=== PATIENT | male | born 1935 | race Caucasian/White ===

== ENCOUNTER 2017-07-11 17:56 | Emergency (ER) | payer MEDICARE, OTHER ==
[2017-07-11 18:04] VITALS: BP 150/84
[2017-07-11] MEDS ORDERED: hydrOXYzine PAMOATE 25 MG CAPSULE PO STA (18:27)
[2017-07-11] MEDS ORDERED: predniSONE 20 MG TABLET PO STA (18:27)
--- NOTE | 2017-07-11 18:29 | ED Physician Documentation ---
PD HPI SKIN - Stated complaint Stated Complaint: BODY RASH - Chief complaint Chief Complaint: Wound - History obtained from History obtained from: Patient - History of Present Illness Timing - onset: Other (He has had a mildly itchy rash on the upper chest for about a month, he tried cortisone cream and that made it worse but it got acutely worse yesterday after using vitamin E ointment on it.) Review of Systems Constitutional: denies: Fever, Chills Cardiac: denies: Chest pain / pressure, Palpitations Respiratory: denies: Dyspnea, Cough GI: denies: Abdominal Pain, Vomiting PD PAST MEDICAL HISTORY - Past Medical History Past Medical History: Yes Cardiovascular: Hypertension Endocrine/Autoimmune: Type 2 diabetes - Present Medications Home Medications: Ambulatory Orders Medication Instructions Recorded Confirmed Aspirin Chewable [[facility] 81 mg PO DAILY 12/01/15 12/01/15 Aspirin] metFORMIN [Glucophage] 500 mg PO ONCE 12/01/15 12/01/15 hydrOXYzine PAMOATE [Vistaril] 25 mg PO Q6H PRN #15 capsule 07/11/17 predniSONE [Deltasone] 20 mg PO DAILY 5 Days tablet 07/11/17 - Allergies Allergies/Adverse Reactions: Allergies Allergy/AdvReac Type Severity Reaction Status Date / Time amoxicillin Allergy Anaphylaxis Verified 12/01/15 12:34 - Social History Does the pt smoke?: No Smoking Status: Never smoker PD ED PE NORMAL - Vitals Vital signs reviewed: Yes - General General: Alert and oriented X 3, No acute distress - Derm Derm: Other (On the central and upper chest he has a pretty clear contact dermatitis, the underlying cause of the rash is not identifiable.) - Neuro Neuro: Alert and oriented X 3, Normal speech Results - Vitals Vitals: Vital Signs - 24 hr 07/11/17 07/11/17 17:59 18:02 Temperature 36.9 C Heart Rate 74 Respiratory 18 Rate Blood Pressure 150/84 H O2 Saturation 97 Oxygen O2 Source Room air PD MEDICAL DECISION MAKING - ED course ED course: Very low dose of prednisone was chosen because he has borderline diabetes and in 1979 or so he had some sort of illness necessitating high-dose steroid therapy which made him very hyper. Departure - Departure Disposition: 01 Home, Self Care Clinical Impression: Contact dermatitis Qualifiers: Contact dermatitis type: irritant Contact dermatitis trigger: drugs in contact with skin Qualified Code(s): L24.4 - Irritant contact dermatitis due to drugs in contact with skin Condition: Good Record reviewed to determine appropriate education?: Yes Instructions: ED Dermatitis Contact Follow-Up: [facility] [Provider Group] Prescriptions: hydrOXYzine PAMOATE [Vistaril] 25 mg PO Q6H PRN #15 capsule PRN Reason: Itching predniSONE [Deltasone] 20 mg PO DAILY 5 Days tablet Comments: Your blood pressure was elevated today on check into the emergency department. This does not mean that you have hypertension, it is a common phenomenon to come to the emergency department and have elevated blood pressure. I recommend that you see your primary care physician within the week to have it rechecked when you are feeling better.
== END 2017-07-11 18:34 | disposition home or self-care (01) ==
LOC: ED 17:56
DX: L24.4 Irritant contact dermatitis due to drugs in contact with skin (principal); I10 Essential (primary) hypertension; E11.9 Type 2 diabetes mellitus without complications; Z79.84 Long term (current) use of oral hypoglycemic drugs; Z79.82 Long term (current) use of aspirin
CPT/HCPCS: 99283; A9270; J7512

== ENCOUNTER 2018-09-06 15:20 | Outpatient (CLI) | payer MEDICARE, OTHER | END 2018-09-06 15:21 | disposition critical access hospital (66) | LOC: EMS 15:20 | PROVIDERS: ATTEND Surgery | DX: R42 Dizziness and giddiness (principal) | CPT/HCPCS: A0425; A0429 ==

== ENCOUNTER 2018-09-06 15:39 | Emergency (ER) | payer MEDICARE, OTHER ==
[2018-09-06] MEDS ORDERED: SODIUM CHLORIDE 0.9% 1,000 ML IV ONE (15:48)
--- NOTE | 2018-09-06 15:51 | ED Physician Documentation ---
PD HPI FOCAL NEURO - Stated complaint Stated Complaint: DIZZY - Chief complaint Chief Complaint: Neuro - History obtained from History obtained from: Patient, EMS - History of Present Illness Timing - onset: Today (This is an 82-year-old gentleman who is generally healthy. He takes metformin for diabetes, no insulin. No other medical problems. He was sitting in his chair watching a horse race and stood up and felt lightheaded. He sat down and felt better but every time he stood up since then he is felt lightheaded. Is been going on for about an hour and a half. He denies any nausea, sweats, shortness of breath, fevers, chills, chest pain, abdominal pain, or bowel complaints. He admits he did not drink any water today, he did have a ham and cheese on rye with lettuce prior to this starting.) Review of Systems Ten Systems: 10 systems reviewed and negative Constitutional: denies: Fever, Chills, Myalgias, Fatigue Nose: denies: Rhinorrhea / runny nose, Congestion Throat: denies: Sore throat Cardiac: denies: Chest pain / pressure, Palpitations Respiratory: denies: Dyspnea, Cough GI: denies: Abdominal Pain PD PAST MEDICAL HISTORY - Past Medical History Cardiovascular: Hypertension Endocrine/Autoimmune: Type 2 diabetes - Present Medications Home Medications: Ambulatory Orders Medication Instructions Recorded Confirmed Aspirin Chewable [[facility] 81 mg PO DAILY 12/01/15 12/01/15 Aspirin] metFORMIN [Glucophage] 500 mg PO ONCE 12/01/15 12/01/15 hydrOXYzine PAMOATE [Vistaril] 25 mg PO Q6H PRN #15 capsule 07/11/17 predniSONE [Deltasone] 20 mg PO DAILY 5 Days tablet 07/11/17 - Allergies Allergies/Adverse Reactions: Allergies Allergy/AdvReac Type Severity Reaction Status Date / Time amoxicillin Allergy Anaphylaxis Verified 12/01/15 12:34 - Social History Does the pt smoke?: No Smoking Status: Never smoker - Family History Family history: reports: Non contributory PD ED PE NORMAL - Vitals Vital signs reviewed: Yes - General General: Alert and oriented X 3, No acute distress - HEENT HEENT: PERRL, EOMI - Neck Neck: Supple, no meningeal sign, No bony TTP - Cardiac Cardiac: RRR, No murmur - Respiratory Respiratory: No respiratory distress, Clear bilaterally - Abdomen Abdomen: Soft, Non tender - Back Back: No CVA TTP, No spinal TTP - Derm Derm: Normal color, Warm and dry - Extremities Extremities: No edema, No calf tenderness / cord - Neuro Neuro: Alert and oriented X 3, 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, Normal speech Eye Opening: Spontaneous Motor: Obeys Commands Verbal: Oriented GCS Score: 15 NIHSS - Time Time: 15:45 - Level of Consciousness Level of consciousness: (0) Alert, Keenly responsive LOC Questions: (0) Answers both Q's correct LOC Commands: (0) Performs both correctly - Gaze Best Gaze: (0) Normal - Visual Visual: (0) No loss - Facial Palsy Facial Palsy: (0) Normal, symmetrical movement - Motor Arms (both separate) Motor Arm (right): (0) No drift Motor Arm (left): (0) No drift - Motor Legs (both separate) Motor Leg (right): (0) No drift Motor Leg (left): (0) No drift - Limb Ataxia Limb Ataxia: (0) Absent - Sensory Sensory: (0) Normal - Best Language Best Language: (0) No aphasia - Dysarthria Dysarthria: (0) Normal - Extinction and Inattention (formally neg Extinction and inattention: (0) No abnormality - Total Score/Results Total Score/Result: 0 Results - Vitals Vitals: Vital Signs - 24 hr 09/06/18 09/06/18 15:41 16:06 Temperature 36.3 C L Heart Rate 91 Heart Rate [ 66 Sitting] Heart Rate [ 77 Standing] Heart Rate [ 71 Supine] Respiratory 18 Rate Blood Pressure 179/127 H Blood Pressure 166/78 H [Sitting] Blood Pressure 162/87 H [Standing] Blood Pressure 172/72 H [Supine] O2 Saturation 97 Oxygen O2 Source Room air - EKG (time done) 1553 Rate: Rate (enter#) (66) Rhythm: NSR [place]: Normal Intervals: Prolonged IA QRS: Normal Ischemia: Normal ST segments Computer interpretation: Agree with computer - Labs Labs: Laboratory Tests 09/06/18 09/06/18 09/06/18 16:03 16:03 16:03 WBC 7.0 RBC 5.21 Hgb 15.9 Hct 47.8 MCV 91.8 MCH 30.6 MCHC 33.3 RDW 13.7 Plt Count 259 MPV 7.1 L Neut # (Auto) 3.8 Lymph # (Auto) 2.2 [place] # (Auto) 0.7 Eos # (Auto) 0.2 Baso # (Auto) 0.1 Absolute Nucleated RBC 0.00 Nucleated RBC % 0.0 Sodium 138 Potassium 4.1 Chloride 101 Carbon Dioxide 25 Anion Gap 12.0 BUN 19 Creatinine 0.9 Estimated GFR (MDRD) 80 L Glucose 131 H Calcium 9.5 Total Bilirubin 0.8 AST 23 ALT 20 Alkaline Phosphatase 73 Troponin I < 0.04 Total Protein 7.3 Albumin 4.2 Globulin 3.1 Albumin/Globulin Ratio 1.4 Lipase 30 Urine Color Urine Clarity Urine pH Ur Specific [place] Urine Protein Urine Glucose (UA) Urine Ketones Urine Occult Blood Urine Nitrite Urine Bilirubin Urine Urobilinogen Ur Leukocyte Esterase Urine RBC Urine WBC Ur Squamous Epith Cells Urine Bacteria Urine Mucus Ur Microscopic Review Urine Culture Comments 09/06/18 16:20 WBC RBC Hgb Hct MCV MCH MCHC RDW Plt Count MPV Neut # (Auto) Lymph # (Auto) [place] # (Auto) Eos # (Auto) Baso # (Auto) Absolute Nucleated RBC Nucleated RBC % Sodium Potassium Chloride Carbon Dioxide Anion Gap BUN Creatinine Estimated GFR (MDRD) Glucose Calcium Total Bilirubin AST ALT Alkaline Phosphatase Troponin I Total Protein Albumin Globulin Albumin/Globulin Ratio Lipase Urine Color YELLOW Urine Clarity CLEAR Urine pH 5.5 Ur Specific [place] >=1.030 H Urine Protein 100 H Urine Glucose (UA) NEGATIVE Urine Ketones TRACE Urine Occult Blood NEGATIVE Urine Nitrite NEGATIVE Urine Bilirubin NEGATIVE Urine Urobilinogen 0.2 (NORMAL) Ur Leukocyte Esterase NEGATIVE Urine RBC 0-5 Urine WBC 4-5 Ur Squamous Epith Cells RARE Squamous Urine Bacteria None Seen Urine Mucus Few Strands Ur Microscopic Review INDICATED Urine Culture Comments NOT INDICATED PD MEDICAL DECISION MAKING - ED course ED course: 82-year-old gentleman presents with nonspecific orthostatic lightheadedness today. He admits he only had one sip of coffee this morning and that all the liquids he is had. His work-up was negative with the exception of high urine specific gravity and he felt better after the administration of IV fluids. Departure - Departure Disposition: 01 Home, Self Care Clinical Impression: Orthostasis, Dehydration Condition: Good Record reviewed to determine appropriate education?: Yes Instructions: ED Dehydration Comments: Call your doctor to arrange a follow-up appointment, make the next available appointment. In the interim, return anytime if worse or if new symptoms develop.
[2018-09-06 16:22] LABS: BASOPHILS # (AUTO) 0.1 10^3/uL (0.0-0.1); BASOPHILS % (AUTO) 0.8 %; EOSINOPHILS # (AUTO) 0.2 10^3/uL (0.0-0.7); EOSINOPHILS % (AUTO) 2.8 %; HGB - HEMOGLOBIN 15.9 g/dL (14.0-18.0); LYMPHOCYTES # (AUTO) 2.2 10^3/uL (1.5-3.5); LYMPHOCYTES % (AUTO) 31.6 %; MEAN CORPUSCULAR HEMOGLOBIN 30.6 pg (27.0-31.0); MEAN CORPUSCULAR HGB CONC 33.3 g/dL (32.0-36.0); MEAN CORPUSCULAR VOLUME 91.8 fL (80.0-94.0); MEAN PLATELET VOLUME 7.1 fL (7.4-11.4); MONOCYTES # (AUTO) 0.7 10^3/uL (0.0-1.0); MONOCYTES % (AUTO) 10.7 %; NEUTROPHILS # (AUTO) 3.8 10^3/uL (1.5-6.6); NEUTROPHILS % (AUTO) 54.1 %; PLT - PLATELET COUNT 259 10^3/uL (130-450); RED BLOOD COUNT 5.21 10^6/uL (4.70-6.10); RED CELL DISTRIBUTION WIDTH 13.7 % (12.0-15.0)
[2018-09-06 16:38] LABS: BILIRUBIN,URINE NEGATIVE (NEGATIVE); GLUCOSE, URINE (UA) NEGATIVE (NEGATIVE); KETONES,URINE (UA) TRACE mg/dL (NEGATIVE); LEUKOCYTE ESTERASE, URINE NEGATIVE (NEGATIVE); NITRITE,URINE NEGATIVE (NEGATIVE); OCCULT BLOOD,URINE NEGATIVE (NEGATIVE); PH,URINE 5.5 PH (5.0-7.5); PROTEIN,URINE 100 mg/dL (NEGATIVE); UROBILINOGEN,URINE 0.2 (NORMAL) E.U./dL (NORMAL)
[2018-09-06 16:39] LABS: ALBUMIN 4.2 g/dL (3.2-5.5); ALBUMIN/GLOBULIN RATIO 1.4 (1.0-2.2); BILIRUBIN,TOTAL 0.8 mg/dL (0.2-1.0); CALCIUM 9.5 mg/dL (8.5-10.3); CREATININE 0.9 mg/dL (0.6-1.2); TOTAL PROTEIN 7.3 g/dL (6.7-8.2)
[2018-09-06 16:54] LABS: CLARITY,URINE CLEAR (CLEAR)
[2018-09-06 16:59] LABS: BACTERIA,URINE None Seen /HPF (None Seen); MUCUS,URINE Few Strands; RBC,URINE 0-5 /HPF (0-5); SQUAMOUS EPITHELIAL CELL,UR RARE Squamous (<= Few)
[2018-09-06 17:51] VITALS: BP 151/104
== END 2018-09-06 17:52 | disposition home or self-care (01) ==
LOC: EDUNIT# → ED 15:39
DX: E86.0 Dehydration (principal); I95.1 Orthostatic hypotension; I44.0 Atrioventricular block, first degree; E11.9 Type 2 diabetes mellitus without complications; Z79.84 Long term (current) use of oral hypoglycemic drugs; I10 Essential (primary) hypertension; Z79.82 Long term (current) use of aspirin
CPT/HCPCS: 36415; 80053; 81001; 81003; 83690; 84484; 85025; 87086; 93005; 96360; 99284

== ENCOUNTER 2022-02-28 19:14 | Outpatient (CLI) | payer MEDICARE, OTHER | END 2022-02-28 23:59 | disposition short-term general hospital (02) | LOC: EMS 19:14 | DX: R55 Syncope and collapse (principal); R11.2 Nausea with vomiting, unspecified; R53.1 Weakness | CPT/HCPCS: A0425; A0427 ==

== ENCOUNTER → 2022-11-10 | Outpatient (CLI) | payer MEDICARE, OTHER | END | disposition left against medical advice (07) | LOC: EMS 06:52 | DX: R42 Dizziness and giddiness (principal) ==

== ENCOUNTER 2023-05-12 09:49 | Emergency (ER) | payer MEDICARE, OTHER ==
[2023-05-12 10:14] VITALS: BP 122/55; O2SAT 98
--- NOTE | 2023-05-12 10:19 | ED Physician Documentation ---
PD HPI SKIN - Stated complaint Stated Complaint: RASH ON CHEST - Chief complaint Chief Complaint: Allergic Rx - History obtained from History obtained from: Patient - History of Present Illness Timing - onset: How many weeks ago (has had mild red rash that is itchy on chest sternal area that has expanded with now blisters. Has increased the past few days despite OTC hydrocortisone cream. Also now in antecubital areas. No feeling of oral lesions/swelling.) Timing - details: Gradual onset, Still present Location: Chest, RUE, LUE Quality / character: Itchy, Discolored, Vesicular Improved by: No: Steroid cream Associated symptoms: Myalgias. No: Fever, Joint pain, Headache, N/V/D Contributing factors: Exposed to soap / lotion (was using some new soap/lotion bodywide recently up until yesterday.). No: Exposed to food, Recent illness Similar symptoms before: No diagnosis (has had similar in the past Rx with oral steroids for several days or so and typically improves with that.) Review of Systems Constitutional: denies: Fever, Chills Nose: denies: Rhinorrhea / runny nose, Congestion Throat: denies: Sore throat Respiratory: denies: Cough GI: denies: Nausea, Vomiting, Diarrhea PD PAST MEDICAL HISTORY - Past Medical History Past Medical History: Yes Cardiovascular: Hypertension Respiratory: None Neuro: None Endocrine/Autoimmune: Type 2 diabetes GI: None : None HEENT: None Psych: None Musculoskeletal: Osteoarthritis Derm: None - Past Surgical History General: Cholecystectomy - Present Medications Home Medications: Ambulatory Orders Medication Instructions Recorded Confirmed Aspirin Chewable [[facility] 81 mg PO DAILY 12/01/15 05/12/23 Aspirin] metFORMIN [Glucophage] 500 mg PO BID 12/01/15 05/12/23 Lisinopril [Zestril] 2.5 mg PO DAILY 10/19/22 05/12/23 Betamethasone Valerate 1 applic TP BID #30 gm 05/12/23 Cetirizine [ZyrTEC] 10 mg PO DAILY #15 tablet 05/12/23 dexAMETHasone [Decadron] 4 mg PO DAILY #5 tablet 05/12/23 - Allergies Allergies/Adverse Reactions: Allergies Allergy/AdvReac Type Severity Reaction Status Date / Time amoxicillin Allergy Anaphylaxis Verified 05/12/23 10:04 - Social History Does the pt smoke?: No Smoking Status: Former smoker Does the pt drink ETOH?: No Does the pt have substance abuse?: No - Immunizations Immunizations are current?: Yes PD ED PE NORMAL - Vitals Vital signs reviewed: Yes - General General: Alert and oriented X 3, No acute distress, Well developed/nourished - HEENT HEENT: Pharynx benign - Neck Neck: Supple, no meningeal sign, No adenopathy - Cardiac Cardiac: RRR, No murmur - Respiratory Respiratory: Clear bilaterally - Abdomen Abdomen: Soft, Non tender - Derm Derm: Normal color, Warm and dry, Other (sternal chest both sides of midline with irregular shaped bordered red based rash, with multiple vesicular/blisters. Redness without warmth nor prulent drainage. Similar in antecubital areas of arms. ) Results - Vitals Vitals: Vital Signs - 24 hr 05/12/23 10:04 Temperature 36.2 C L Heart Rate 92 Respiratory 18 Rate Blood Pressure 122/55 L O2 Saturation 98 Oxygen O2 Source Room air - Labs Labs: Microbiology 05/12/23 10:32 Wound Culture - Preliminary Chest PD Medical Decision Making - ED course Complexity details: considered differential (has irregular bordered rash on chest and separately left antecub area with redness and blistering of larger blisters. Some redness but not warm. No purulence. Blisters have clear fluid (a few opened and cultured the fluid). ), d/w patient ED course: the rash appears more inflammatory - contact dermatitis, allergic, or such, and does not appear cellulitic. Obtained culture of newly nicked blister fluid to ensure not bullous impetigo or similar. Departure - Departure Disposition: 01 Home, Self Care Clinical Impression: Acute dermatitis Condition: Stable Record reviewed to determine appropriate education?: Yes Follow-Up: MARTHA MANCINI ARNP [Primary Care Provider] - Prescriptions: Betamethasone Valerate 1 applic TP BID #30 gm dexAMETHasone [Decadron] 4 mg PO DAILY #5 tablet Cetirizine [ZyrTEC] 10 mg PO DAILY #15 tablet Comments: This looks to be a skin reaction/allergy reaction. Does not appear to be an infection in addition. I did do a culture from some of the blisters and was see if that shows any growth over the next couple of days. If it does, we will contact you to institute antibiotics. Otherwise we will treat it as a skin irritation/dermatitis. Use dexamethasone steroid (similar to prednisone) as directed daily for the next 5 days. Also cetirizine antihistamine twice daily for 1 or 2 days and then daily after that. You can also use betamethasone steroid topically and the worst areas on the chest just a light amount twice daily. Follow-up with your primary care if not improved well over the next several days and resolved by 3 to 5 days or if recurring episodes in the near future. I sent your prescription to your preferred pharmacy. Forms: PCP List Discharge Date/Time: 05/12/23 11:12
[2023-05-12] MEDS: dexAMETHasone 4 MG TABLET PO STA (10:42)
[2023-05-12] MEDS: CETIRIZINE 10 MG TABLET PO STA (10:42)
== END 2023-05-12 11:12 | disposition home or self-care (01) ==
LOC: ED 09:49
DX: L30.9 Dermatitis, unspecified (principal); I10 Essential (primary) hypertension; E11.9 Type 2 diabetes mellitus without complications; Z87.891 Personal history of nicotine dependence; Z79.82 Long term (current) use of aspirin; Z79.84 Long term (current) use of oral hypoglycemic drugs; Z79.899 Other long term (current) drug therapy
CPT/HCPCS: 87070; 87205; 99283; A9270; J8540